=== PATIENT | female | born 1960 | race Caucasian/White ===

== ENCOUNTER 2017-02-05 10:53 | Emergency (ER) | payer OTHER ==
[~2017-02-05] VITALS: Ht 162.6 cm; Wt 69.5 kg
[2017-02-05] MEDS ORDERED: PERCOCET 5/31 TABLET PO (12:34)
[2017-02-05 13:39] VITALS: BP 0/0
== END 2017-02-05 13:40 | disposition home or self-care (01) ==
LOC: EME 10:53 → EDBD 10:53 → EME 13:40
DX: S42.212A Unspecified displaced fracture of surgical neck of left humerus, initial encounter for closed fracture (principal); V00.321A Fall from snow-skis, initial encounter; Y93.23 Activity, snow (alpine) (downhill) skiing, snowboarding, sledding, tobogganing and snow tubing
CPT/HCPCS: 73030; 99281; 99284; J2270